=== PATIENT | male | born 1990 | race Caucasian/White ===

== ENCOUNTER 2018-03-27 06:28 | Emergency (ER) | payer MEDICAID ==
[~2018-03-27] VITALS: Ht 175.3 cm; Wt 95.0 kg
[2018-03-27] MEDS ORDERED: ONDANSETRON 4MG ODT PO ONE (09:00)
[2018-03-27] MEDS ORDERED: MORPHINE SULFATE 10 MG/ML CPJ IV ONE (09:00)
[2018-03-27 13:42] VITALS: BP 137/60
== END 2018-03-27 13:44 | disposition home or self-care (01) ==
LOC: ER 06:47
DX: S00.83XA Contusion of other part of head, initial encounter (principal); F17.200 Nicotine dependence, unspecified, uncomplicated; V49.88XA Car occupant (driver) (passenger) injured in other specified transport accidents, initial encounter; Y93.89 Activity, other specified; Y92.89 Other specified places as the place of occurrence of the external cause; Y99.8 Other external cause status
CPT/HCPCS: 96374; 99284; J2270; Q0162